=== PATIENT | male | born 1995 | race African-American/Black ===

== ENCOUNTER 2020-01-18 10:58 | Emergency (ER) | payer OTHER ==
[2020-01-18 11:05] VITALS: BP 137/84
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
== END 2020-01-18 13:16 | disposition home or self-care (01) ==
LOC: ED 10:58
DX: S20.212A Contusion of left front wall of thorax, initial encounter (principal); V43.64XA Car passenger injured in collision with van in traffic accident, initial encounter; Y92.410 Unspecified street and highway as the place of occurrence of the external cause
CPT/HCPCS: 99283; 99284